=== PATIENT | female | born 1970 | race Caucasian/White ===

== ENCOUNTER → 2023-10-26 15:16 | Outpatient (REF) | payer OTHER, SELFPAY | LOC: WDC 15:16 | PROVIDERS: ATTENDING PHYSICIAN Family Medicine | DX: Z12.31 Encounter for screening mammogram for malignant neoplasm of breast (principal) | CPT/HCPCS: 77063; 77067 ==

== ENCOUNTER → 2023-12-17 14:29 | Outpatient (REF) | payer OTHER, SELFPAY | LOC: RAD 14:29 | PROVIDERS: ATTENDING PHYSICIAN Family Medicine | DX: Z78.0 Asymptomatic menopausal state (principal); Z82.62 Family history of osteoporosis; Z13.820 Encounter for screening for osteoporosis | CPT/HCPCS: 77080 ==